=== PATIENT | female | born 1970 | race Caucasian/White ===

== ENCOUNTER 2019-05-13 09:38 | Outpatient (CLI) | payer BC, SELFPAY ==
--- NOTE | ~2019-05-13 | MM_ITS ---
EXAMINATION: MM screening [facility] BI w jason HISTORY: Screening mammogram TECHNIQUE: Craniocaudal and mediolateral oblique 3-D tomosynthesis images were obtained and synthetic 2-D images were generated. CAD analysis was submitted and interpreted. COMPARISON: 04/02/2018, 03/24/2017, 03/22/2016 BREAST PARENCHYMAL COMPOSITION: There are scattered areas of fibroglandular density. FINDINGS: Again seen are a stable asymmetry in the middle third of the outer left breast on the crani ocaudal view and a mass in the middle third of the upper right breast, both considered benign given t he lack of interval change. There is no evidence of suspicious mass, calcification, or architectural distortion to suggest malignancy in either breast. There has been no suspicious interval change. IMPRESSION: 1. No mammographic evidence of malignancy. 2. Recommend routine screening mammography in one year. BI-RADS Category 2: Benign finding(s). Reviewed, dictated and finalized at location A. 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
== END 2019-05-13 09:39 | disposition home or self-care (01) ==
PROVIDERS: PCP Internal Medicine; Referring Provider Obstetrics & Gynecology; Visit Provider Internal Medicine
DX: Z12.31 Encounter for screening mammogram for malignant neoplasm of breast (principal)
CPT/HCPCS: 77063; 77067

== ENCOUNTER 2020-07-04 16:21 | Outpatient (CLI) | payer BC, SELFPAY ==
--- NOTE | ~2020-07-04 | MM_ITS ---
EXAMINATION: MM screening [facility] BI w jason HISTORY: Screening mammogram TECHNIQUE: Craniocaudal and mediolateral oblique 3-D tomosynthesis images were obtained and synthetic 2-D images were generated. CAD analysis was submitted and interpreted. COMPARISON: 05/13/2019, 04/02/2018, 03/24/2017 bilateral digital screening mammogram examinations BREAST PARENCHYMAL COMPOSITION: The breasts are almost entirely fatty. FINDINGS: There is no evidence of suspicious mass, calcification, or architectural distortion to sugg est malignancy in either breast. There has been no suspicious interval change. IMPRESSION: 1. No mammographic evidence of malignancy. 2. Recommend routine screening mammography in one year. BI-RADS Category 1: Negative Reviewed, dictated and finalized at location B.
== END 2020-07-04 16:22 | disposition home or self-care (01) ==
LOC: ANHIMG 16:23
PROVIDERS: PCP Internal Medicine; Visit Provider Internal Medicine
DX: Z12.31 Encounter for screening mammogram for malignant neoplasm of breast (principal)
CPT/HCPCS: 77063; 77067

== ENCOUNTER 2020-08-08 10:19 | Outpatient (CLI) | payer BC, SELFPAY ==
--- NOTE | 2020-08-23 21:48 | WPDHOMESLEEP ---
Sleep Study - Home Unattended Date of Study: 08/08/20 Ordering Provider: Regulo Hernandez APRN Interpreting Provider: Екатерина Davidson MD Home Sleep Study Type: Apnea Link Air Height: 1.57 m Weight: 99.79 kg Body Mass Index: 40.2 Neck Circumference (inches): 14 Reason for Sleep Study Difficulty initiating and maintaining sleep, morning headaches, non restorative sleep Sleep History Patty Marshall is a 50 year old female with difficulty getting to sleep and staying asleep. This has been going on for years. She has morning headaches frequently. On waking, she never feels rested. She has daytime fatigue. Symptoms worsened over the last 10 years with ayleen-menopause and early menopause. She feels tired on waking. She has insomnia twice a month for 3-5 nights at a time. There is a family history of sleep issues with her parents and her older brother diagnosed with sleep apnea. She is using dacz-wbb-ypzcbxe melatonin recently changed to Valerian. She does not awaken from sleep feeling short of breath. She does not awaken at night with heartburn, belching or coughing. She occasionally snores. She rarely snores loudly enough that others complain about it. She constantly has trouble sleeping with a cold. She does not wake up gasping for breath at night. She frequently has breathing problems observed by others. She occasionally sweats excessively at night and occasionally notices her heart pounding or beating irregularly at night. She rarely falls asleep during the day, rarely falls asleep involuntarily and never falls asleep while driving. She does not have loss of muscle tone with strong emotion. She frequently has daytime difficulties due to excessive sleepiness. 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 She does not feel paralyzed on waking or falling asleep. She rarely has vivid dreamlike scenes upon awakening or falling asleep. She does not feel afraid to go to sleep. She rarely has nightmares. She rarely remembers her dreams. She rarely has racing thoughts. She occasionally feels sad or depressed. She rarely feels anxiety or worries about things. She occasionally has muscular tension. She frequently notices parts of her body jerking. She never kicks at night. She does not have crawling or aching feelings in her legs. She does not have any kind of leg pain at night. She rarely has morning jaw pain. She rarely grinds her teeth during sleep. She occasionally is bothered by pain during the day and will occasionally awaken due to pain during the night. She frequently wakes up feeling stiff in the morning. Rarely, she wakes with sore or achy muscles. She frequently wakes up with pain in the neck and spine. She feels depressed and takes medications which help. She has memory problems and concentration difficulties which occur more often after insomnia the prior night. She Has chronic sinus and allergy problems. She is trying to avoid hormone replacement therapy due to her mother's cancer history. Normal bedtime is between 11 and 11:30 p.m. taking 30 minutes to fall asleep typically waking twice at night. When she awakes she will go urinate and change positions. It takes 30 minutes to fall asleep again is sometimes as long as 2-3 hours. She wakes the morning at 6:40 a.m.. On the weekends she also goes to bed between 11 and 11:30 p.m. waking between 8 and 9:00 a.m.. She estimates getting 6-7 hours of sleep normally. She does not generally take naps. She is drowsy in the morning for an hour. Habits: Never smoked. Caffeine 2 glasses of tea in the morning. No alk PMFSH Past Medical History Medical History (Updated 08/23/20 @ 22:02 by Екатерина Davidson MD) Depression Diabetes Hypertension Migraines Rheumatoid arthritis Surgical History Surgical History Hx of cholecystectomy [place] teeth removed Family History Family History (Reviewed 12/03/19 @ 14:41 by Angélica Solorzano
[2020-08-23 22:03] VITALS: BMI 40.2
== END 2020-08-08 10:20 | disposition home or self-care (01) ==
LOC: ANHCSM 10:21
PROVIDERS: PCP Internal Medicine; Visit Provider Nurse Practitioner
DX: G47.33 Obstructive sleep apnea (adult) (pediatric) (principal); G47.10 Hypersomnia, unspecified; F32.9 Major depressive disorder, single episode, unspecified; E11.9 Type 2 diabetes mellitus without complications; I10 Essential (primary) hypertension; G43.909 Migraine, unspecified, not intractable, without status migrainosus; M06.9 Rheumatoid arthritis, unspecified; Z79.899 Other long term (current) drug therapy; E66.9 Obesity, unspecified; Z68.41 Body mass index [BMI] 40.0-44.9, adult
CPT/HCPCS: 95806

== ENCOUNTER 2020-11-01 09:21 | Outpatient (CLI) | payer BC, SELFPAY ==
--- NOTE | 2020-11-20 14:04 | WPDSLEEPSTUD ---
Sleep Study Date of Study: 11/01/20 Ordering Provider: Regulo Hernandez APRN Interpreting Physician: Екатерина Davidson MD Sleep Study Type: CPAP Titration Height: 1.57 m Weight: 102.058 kg Body Mass Index: 41.1 Neck Circumference (inches): 16 [place]: 5 Reason for Sleep Study Home sleep test using ApneaLink August 08, 2020 with at least mild obstructive sleep apnea with an apnea-hypopnea index of 10.1, desaturation to 87% and snoring, has hypertension and depression, takes medications for both. She presents for a CPAP titration in the sleep lab. Sleep History Patty Marshall is a 50 year old female with difficulty getting to sleep and staying asleep. This has been going on for years. She has morning headaches frequently. On waking, she never feels rested. She has daytime fatigue. Symptoms worsened over the last 10 years with ayleen-menopause and early menopause. She feels tired on waking. She has insomnia twice a month for 3-5 nights at a time. There is a family history of sleep issues with her parents and her older brother diagnosed with sleep apnea. She is using bwbd-odt-fhlodac melatonin recently changed to Valerian. She does not awaken from sleep feeling short of breath. She does not awaken at night with heartburn, belching or coughing. She occasionally snores. She rarely snores loudly enough that others complain about it. She constantly has trouble sleeping with a cold. She does not wake up gasping for breath at night. She frequently has breathing problems observed by others. She occasionally sweats excessively at night and occasionally notices her heart pounding or beating irregularly at night. She rarely falls asleep during the day, rarely falls asleep involuntarily and never falls asleep while driving. She does not have loss of muscle tone with strong emotion. She frequently has daytime difficulties due to excessive sleepiness. 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 She does not feel paralyzed on waking or falling asleep. She rarely has vivid dreamlike scenes upon awakening or falling asleep. She does not feel afraid to go to sleep. She rarely has nightmares. She rarely remembers her dreams. She rarely has racing thoughts. She occasionally feels sad or depressed. She rarely feels anxiety or worries about things. She occasionally has muscular tension. She frequently notices parts of her body jerking. She never kicks at night. She does not have crawling or aching feelings in her legs. She does not have any kind of leg pain at night. She rarely has morning jaw pain. She rarely grinds her teeth during sleep. She occasionally is bothered by pain during the day and will occasionally awaken due to pain during the night. She frequently wakes up feeling stiff in the morning. Rarely, she wakes with sore or achy muscles. She frequently wakes up with pain in the neck and spine. She feels depressed and takes medications which help. She has memory problems and concentration difficulties which occur more often after insomnia the prior night. She Has chronic sinus and allergy problems. She is trying to avoid hormone replacement therapy due to her mother's cancer history. Normal bedtime is between 11 and 11:30 p.m. taking 30 minutes to fall asleep typically waking twice at night. When she awakes she will go urinate and change positions. It takes 30 minutes to fall asleep again is sometimes as long as 2-3 hours. She wakes the morning at 6:40 a.m.. On the weekends she also goes to bed between 11 and 11:30 p.m. waking between 8 and 9:00 a.m.. She estimates getting 6-7 hours of sleep normally. She does not generally take naps. She is drowsy in the morning for an hour. Habits: Never smoked. Caffeine 2 glasses of tea in the morning. No alk PMFSH Past Medical History Medical History Depression Diabetes Hypertension Migraines Rheumatoid arthritis Surgical History Surgical History
[2020-11-20 14:52] VITALS: BMI 41.1
--- NOTE | 2020-11-20 15:16 | PM.CNPUL ---
History of Present Illness History of Present Illness Consult date: 11/20/20 Chief complaint: louann PMFSH Past Medical History Medical History Depression Diabetes Hypertension Migraines Rheumatoid arthritis Surgical History Surgical History Hx of cholecystectomy [place] teeth removed Family History Family History Father Diabetes mellitus Hypertension Cerebrovascular accident Mother Diabetes mellitus Hypertension Family history of malignant neoplasm of breast in first degree relative Grandparent Hypertension Social History Social History Smoking status: Never smoker Alcohol intake: never Meds Home Medications and Allergies Home Medications Medication Instructions Recorded Confirmed Type fexofenadine 60 mg tablet 60 mg PO Q12H 05/12/19 06/06/20 History magnesium sulfate 100 mg capsule 100 mg PO DAILY 05/12/19 06/06/20 History multivitamin 1 tablet PO DAILY 05/13/19 06/06/20 History sumatriptan succinate 50 mg tablet 50 mg PO .COMPLEX #14 tablet 07/29/19 06/06/20 Rx amitriptyline 25 mg tablet 25 mg PO ONCE #90 tablet 04/20/20 06/06/20 Rx sitagliptin 50 mg-metformin 1,000 1 tablet PO BID #180 tablet 06/06/20 06/06/20 Rx mg tablet bupropion HCl 300 mg 24 hr tablet, 300 mg PO QAM #90 tablet 07/28/20 Rx extended release lisinopril 10 1 tablet PO DAILY #90 tablet 10/17/20 Rx mg-hydrochlorothiazide 12.5 mg tablet zolpidem 10 mg tablet 10 mg PO ONCE #1 tablet 10/20/20 Rx Allergies Allergy/AdvReac Type Severity Reaction Status Date / Time Penicillins Allergy Unknown Unknown Verified 06/06/20 13:58 Sulfa (Sulfonamide Allergy Unknown Unknown Verified 06/06/20 13:58 Antibiotics)
== END 2020-11-02 07:12 | disposition home or self-care (01) ==
LOC: ANHCSM 09:22
PROVIDERS: PCP Internal Medicine; Visit Provider Nurse Practitioner
DX: G47.33 Obstructive sleep apnea (adult) (pediatric) (principal)
CPT/HCPCS: 95811

== ENCOUNTER 2021-02-12 15:04 | Emergency (ER) | payer BC, SELFPAY ==
--- NOTE | ~2021-02-12 | XR_ITS ---
EXAMINATION: XR chest 2V EXAM DATE: 02/12/2021 16:27 INDICATION: Left-sided chest tightness radiating into left shoulder. TECHNIQUE: Frontal and lateral projections of the chest obtained and reviewed. Comparison is made to prior examination from 2009. FINDINGS: The lungs are clear. There are no pleural effusions. The cardiomediastinal silhouette is within normal limits. There is no pneumothorax suspected. The bones and soft tissues are unremarkab le. There are cholecystectomy clips. IMPRESSION: Unremarkable chest x-ray exam. Reviewed, dictated and finalized at location A.
--- NOTE | 2021-02-12 15:11 | ECG_ITS ---
Measurements Intervals [place] Rate: 80 P: 49 TN: 148 QRS: 82 QRSD: 83 T: 53 QT: 359 QTc: 415 Interpretive Statements SINUS RHYTHM WITH SINUS ARRHYTHMIA MINIMAL Q WAVES- INFERIOR LEADS BASELINE ARTIFACT- I, II, AVR BORDERLINE ECG Electronically Signed On 02-12-2021 15:19:33 CDT by Armando Law D.O.
[2021-02-12 15:12] VITALS: BP 148/77; PULSE 89; RESP 18; TEMP 36.3; O2SAT 100
--- NOTE | 2021-02-12 15:20 | PC.NURSE ---
Attempted to obtain blood work for patient x2 with 2 separate RN's without success at this time.
--- NOTE | 2021-02-12 16:45 | ED.CHESTPAIN ---
HPI - Chest Pain General Chief Complaint: Chest Pain Stated Complaint: Chest Pain Time Seen by Provider: 02/12/21 16:32 Source: patient and RN notes reviewed Mode of arrival: ambulatory Limitations: no limitations History of Present Illness HPI narrative: This is a 50 year old female with history of hypertension and diabetes mellitus who presents for evaluation of left anterior chest pain. Patient has been dealing with what she thought was seasonal allergies for 2 weeks . Her symptoms include sneezing, runny nose, nasal congestion and mild cough. She went to [facility] for evaluation today because she developed mild left anterior chest pain on Friday. She describes her left anterior chest pain as intermittent , nonradiating tightening. She also reports constant dull ache to left posterior shoulder for 1 week that is not associated with her chest pain. Her symptoms are not worsened with exertion or any other factors. She denies fever, chills, nausea or vomiting. She also reports intermittent epigastric pain. Related Data Home Medications Medication Instructions Recorded Confirmed fexofenadine 60 mg tablet 60 mg PO Q12H 05/12/19 12/14/20 magnesium sulfate 100 mg capsule 100 mg PO DAILY 05/12/19 12/14/20 multivitamin 1 tablet PO DAILY 05/13/19 12/14/20 phenylephrine HCl 10 mg tablet 10 mg PO Q4-6H PRN 12/14/20 12/14/20 turmeric root extract 1,053 mg 1,076 mg PO DAILY 12/14/20 12/14/20 tablet Allergies Allergy/AdvReac Type Severity Reaction Status Date / Time Penicillins Allergy Unknown Unknown Verified 01/08/21 14:24 Sulfa (Sulfonamide Allergy Unknown Unknown Verified 01/08/21 14:24 Antibiotics) Review of Systems Review of Systems: All systems reviewed & are unremarkable except as noted in HPI and below Constitutional: Constitutional: Denies chills and Denies fever(s) ENT: Reports nasal congestion and Reports sinus pressure Cardiovascular: Cardiovascular: Reports chest pain Respiratory: Respiratory: Reports cough and Reports dyspnea Gastrointestinal: Gastrointestinal: Reports abdominal pain, Denies diarrhea, Denies nausea and Denies vomiting PMFSH Past Medical History Medical History Depression Diabetes Hypertension Migraines Rheumatoid arthritis Surgical History Surgical History Hx of cholecystectomy [place] teeth removed Family History Family History Father Diabetes mellitus Hypertension Cerebrovascular accident Mother Diabetes mellitus Hypertension Family history of malignant neoplasm of breast in first degree relative Grandparent Hypertension Social History Social History (Updated 01/08/21 @ 14:24 by Luna Rodgers [facility]) Smoking status: Never smoker Second hand tobacco smoke exposure: No Alcohol intake: never Substance use: never Substance use type: does not use Exam Const: General: no acute distress and alert Eyes: Pupils: Equal, round and reactive pupils present EOM: EOMs intact bilaterally Chest: Chest palpation & inspection: normal inspection of the chest Resp: Effort & Inspection: normal respiratory effort and no retractions Auscultation: clear to auscultation bilaterally Cardio: Rate: regular rate Rhythm: regular rhythm Heart sounds: no murmurs GI: GI Palp: Yes Soft to palpation, Yes Tenderness to palpation present (GI) (epigastric), No Guarding due to palpation present (GI) and No Rigid due to palpation Auscultation: normal bowel sounds Skin: General skin exam: normal color Rashes: no rashes Neuro: General: patient oriented x3, moves all extremities and CN's II-XI intact bilaterally Extrem: General: normal to inspection Psych: Mental Status: mental status grossly normal Affect: normal affect Course Reevaluation(s) Reevaluation #1: PAtient presented with
[2021-02-12 17:01] LABS: Basophils Absolute Auto 0.1 K/mm3 (0.0-0.1); Basophils Percent Auto 0.5 % (0.2-1.2); Eosinophils Absolute Auto 0.3 K/mm3 (0-0.3); Eosinophils Percent Auto 3.1 % (0-4.4); Hemoglobin 13.2 g/dL (12.0-15.0); Immature Granulocyte Absolute 0.07 K/mm3 (0.00-0.031); Immature Granulocyte Percent A 0.8 % (0-0.5); Lymphocytes Absolute Auto 2.85 K/mm3 (0.9-3.2); Lymphocytes Percent Auto 30.7 % (18.3-44.2); Mean Corpuscular Hemoglobin 30.2 pg (26-34); Mean Corpuscular Volume 91.5 fl (80-100); Mean Platelet Volume 8.8 fl (7.4-10.4); Monocytes Absolute Auto 0.7 K/mm3 (0.1-0.6); Monocytes Percent Auto 7.9 % (2.6-8.5); Neutrophils Absolute Auto 5.3 K/mm3 (1.3-6.7); Platelet Count Result 348 k/mm3 (150-375); Red Blood Count 4.37 M/mm3 (4.2-5.4); Red Cell Distribution Width 13.8 % (11.5-14.5); White Blood Count 9.3 K/mm3 (4.5-10.0)
[2021-02-12 17:16] LABS: INR 0.9; Prothrombin Time 11.7 Seconds (11.1-14.7)
[2021-02-12 17:17] LABS: Partial Thromboplastin Time 27.8 SECONDS (22.3-36.8)
[2021-02-12 17:20] LABS: D Dimer 0.31 ug/mL (<0.48)
[2021-02-12 17:34] LABS: Troponin I < 0.012 ng/mL (0.000-0.034)
[2021-02-12 17:36] LABS: Alanine Aminotransferase 37 U/L (4-35); Albumin Level 4.7 g/dL (3.5-5.1); Alkaline Phosphatase 88 U/L (38-126); Anion Gap 11 mmol/L (8-16); Aspartate Amino Transferase 39 U/L (14-36); Bilirubin,Total 0.4 mg/dL (0.2-1.3); Blood Urea Nitrogen 15 mg/dL (7-17); Calcium 9.7 mg/dL (8.4-10.2); Carbon Dioxide 23 mmol/L (22-30); Chloride 107 mmol/L (98-107); Estimated CRCL calculation 82 ml/min; Estimated Glomerular Filt Rate > 60; Glucose 89 mg/dL (65-110); Lipase 28 U/L (23-300); Sodium 141 mmol/L (137-145)
[2021-02-12 18:23] VITALS: BP 122/74; PULSE 86; RESP 13; O2SAT 100
[2021-02-12] MEDS: KETOROLAC 30 MG/ML VIAL (*BKC) IV PUSH (18:55)
[2021-02-12 19:05] LABS: Troponin I < 0.012 ng/mL (0.000-0.034)
[2021-02-12 19:38] LABS: Add Urine Microscopic? YES; Appearance Urine Cloudy (Clear); Bacteria Urine Trace /hpf; Bilirubin Urine Negative (Negative); Blood Urine Negative (Negative); Color Urine Yellow (Yellow); Glucose Urine UA Negative (Negative); Ketones Urine Negative (Negative); Leukocyte Esterase Ur 2+ LEU/UL (Negative); Mucus Urine Rare /lpf; Nitrate Urine Negative (Negative); Protein Urine Negative (Negative); Specific Grav Ur 1.013 (1.001-1.035); Squamous Epithelial Cell Urine Few /hpf (Few); Urobilinogen Urine Negative mg/dL (<2.0)
[2021-02-12 20:01] VITALS: BP 123/65; PULSE 75; RESP 13; O2SAT 99
[2021-02-12 21:27] VITALS: BP 114/73; PULSE 82; RESP 16; O2SAT 99
== END 2021-02-12 20:36 | disposition home or self-care (01) ==
PROVIDERS: Emergency Medicine; Emergency Provider General Practice; PCP Internal Medicine
DX: J06.9 Acute upper respiratory infection, unspecified (principal); R07.9 Chest pain, unspecified; I10 Essential (primary) hypertension; E11.9 Type 2 diabetes mellitus without complications; M06.9 Rheumatoid arthritis, unspecified; F32.A Depression, unspecified; Z79.84 Long term (current) use of oral hypoglycemic drugs; R94.31 Abnormal electrocardiogram [ECG] [EKG]
CPT/HCPCS: 36415; 71046; 80048; 80076; 81001; 81025; 83690; 84484; 85025; 85380; 85610; 85730; 87086; 87088; 93005; 96374; 99284; J1885

== ENCOUNTER 2021-08-16 16:47 | Outpatient (CLI) | payer BC, SELFPAY ==
--- NOTE | ~2021-08-16 | MM_ITS ---
EXAMINATION: MM screening [facility] BI w jason HISTORY: Screening mammogram TECHNIQUE: Craniocaudal and mediolateral oblique 3-D tomosynthesis images were obtained and synthetic 2-D images were generated. CAD analysis was submitted and interpreted. COMPARISON: 07/04/2020, 05/13/2019, 04/02/2018 bilateral screening mammogram examinations BREAST PARENCHYMAL COMPOSITION: The breasts are almost entirely fatty. FINDINGS: There is no evidence of suspicious mass, calcification, or architectural distortion to sugg est malignancy in either breast. There has been no suspicious interval change; no significant new or developing density.. IMPRESSION: 1. No mammographic evidence of malignancy. 2. Recommend routine screening mammography in one year. BI-RADS Category 2: Benign finding(s). Reviewed, dictated and finalized at location A.
== END 2021-08-16 16:48 | disposition home or self-care (01) ==
PROVIDERS: PCP Internal Medicine; Visit Provider Internal Medicine
DX: Z12.31 Encounter for screening mammogram for malignant neoplasm of breast (principal)
CPT/HCPCS: 77063; 77067

== ENCOUNTER → 2021-08-23 08:14 | Outpatient (CLI) | payer BC, SELFPAY ==
--- NOTE | ~2021-08-23 | US_ITS ---
EXAMINATION: US pelvic complete w TV DATE: 08/23/2021 08:44 INDICATION: Postmenopausal bleeding TECHNIQUE: Multiple transabdominal and endovaginal sonographic images of the pelvis were obtained. COMPARISON: 05/11/2018 FINDINGS: The uterus measures 6.5 x 3.3 x 4.6 cm. There is a 3.3 x 3.1 cm hypoechoic lesion of the ut erine fundus with has the appearance of an intramural fibroid. A 2.5 x 2.0 cm isoechoic lesion of the posterior uterine body also likely represents an intramural fibroid. The endometrial complex measure s 6 mm. An IUD appears to be in expected position. The right ovary is not visualized however no right adnexal abnormality is seen. The left ovary measures 2.0 x 1.5 x 1.7 cm. There is normal vascular fl ow in the left ovary. There is no free fluid in the pelvis. IMPRESSION: 1. No sonographic correlate for the patient's symptoms. Reviewed, dictated and finalized at location A.
== END ==
PROVIDERS: PCP Internal Medicine; Visit Provider Obstetrics & Gynecology
DX: N95.0 Postmenopausal bleeding (principal)
CPT/HCPCS: 76830; 76856

== ENCOUNTER 2022-04-18 10:03 | Outpatient (CLI) | payer BC, SELFPAY ==
--- NOTE | 2022-04-18 10:13 | ECG_ITS ---
Measurements Intervals [place] Rate: 72 P: 48 TN: 150 QRS: 76 QRSD: 90 T: 43 QT: 366 QTc: 401 Interpretive Statements SINUS RHYTHM WITH SINUS ARRHYTHMIA MINIMAL Q WAVES- INFERIOR LEADS BORDERLINE ECG COMPARED TO ECG 02/12/2021 15:08:34 NO SIGNIFICANT CHANGES Electronically Signed On 04-18-2022 13:05:20 HISTOLOGY SUPERVISOR by Armando Law D.O.
== END 2022-04-18 10:04 | disposition home or self-care (01) ==
LOC: ANHCARD 10:04
PROVIDERS: PCP Internal Medicine; Visit Provider Obstetrics & Gynecology
DX: Z01.810 Encounter for preprocedural cardiovascular examination (principal)
CPT/HCPCS: 93005

== ENCOUNTER 2022-05-01 00:07 | Day surgery (SDC) | payer BC, SELFPAY ==
[2022-04-19 11:38] VITALS: BMI 41.3
--- NOTE | 2022-04-19 11:43 | PC.NURSE ---
Report to the Outpatient Waiting Room, entrance under the green pavilion located off [facility], at time 0600 on date 05/01/22. Planned Procedure Time: 0730. Time changes happen often and if your time is changed the preop area will call you the afternoon before. - You and your visitor will be asked to self-screen and do not enter if you have any COVID symptoms. - Only one visitor is requested with a max of two and NO children visitors are allowed at this time. - The patient visitor may be requested to leave or wait in car when not with patient due to distancing restrictions. - A mask is REQUIRED within the hospital. Patients may have clear liquids (water, carbonated beverages, clear teas, apple juice) until 3 hours prior to surgery with a maximum of 20 ounces. - No food from midnight until time of surgery Take the following medications with a SIP of water the morning of surgery: BUPROPION, NALTREXONE Medications to discontinue per physician: VITAMINS/SUPPLEMENTS Date to take last dose: 04/27/22 Please no make-up, nail trinidadian, hairspray, perfume, deodorant, or body powder the day of surgery. No jewelry (including any body piercings) or valuables the day of surgery, leave them at home. Please take a shower or bath the night before, or the morning of, surgery with an antibacterial soap. Wear comfortable, loose fitting clothing. - Jewelry must be removed prior to entering the operating room. Rings and piercings that are not removed may be cut off. - The hospital will not accept responsibility for valuables. - Please leave all valuables, including medications, at home the day of surgery. If you are going home after surgery, a licensed tanker driver must drive you home. - NO public transportation without another adult if you receive anesthesia. - We recommend that an adult stay with you for 24 hours following discharge. - We also recommend that you do not drive, make important decision, drink alcoholic beverages, or take any drugs that were not prescribed by your health care provider for at least 24 hours after your discharge time. Follow any additional instructions given to you from your surgeon. If you or anyone in your household have experienced Covid symptoms in the past week, please notify your surgeon or the nurse liaison at the phone number below for possible testing. Telephone instructions given to PT - JARAD JOHNSON and asked if any additional questions and then verbalized understanding. Patient advised to call surgeon office or pre surgery nurse liaison [phone] if any additional questions.
--- NOTE | 2022-04-30 13:07 | WPDANESEPPF ---
Anes - Initial Pre Proc Eval Procedure: Operation Date: 05/01/22 07:30 Proposed Procedures p Robotic Assisted Total Hysterectomy with Bilateral Salpingo-oophorectomy - Chico Temple MD Date/Time: 04/30/22 13:07 Surgeon: Chico Temple MD Pre Op Diagnosis: Fibroid Uterus Patient Data Age: 51 Gender: F Height: 1.57 m Weight: 102.5 kg Allergies Allergy/AdvReac Type Severity Reaction Status Date / Time Penicillins Allergy Unknown Redness of Verified 05/01/22 06:37 Skin Sulfa (Sulfonamide Allergy Unknown Hives Verified 05/01/22 06:37 Antibiotics) Home Medications Medication Instructions Recorded Confirmed Type fexofenadine 60 mg tablet (Tanya 60 mg PO Q12H 05/12/19 04/23/22 History Allergy) magnesium sulfate 100 mg capsule 100 mg PO DAILY 05/12/19 04/23/22 History phenylephrine HCl 10 mg tablet 10 mg PO Q4-6H PRN Sinus Symptoms 12/14/20 04/23/22 History (Sudafed PE) fluticasone propionate 50 2 spray intranasal DAILY #16 grams 02/05/21 04/23/22 Rx mcg/actuation nasal spray,suspension (Flonase Allergy Relief) levonorgestrel 20 mcg/24 hours (8 1 device intrauterine ONCE 09/27/21 04/23/22 History yrs) 52 mg intrauterine device (Mirena) zolpidem 10 mg tablet (Ambien) 10 mg PO QHS PRN insomnia #30 tabs 10/23/21 04/23/22 Rx naltrexone 50 mg tablet 25 mg PO DAILY #15 tabs 04/02/22 04/23/22 Rx bupropion HCl 300 mg 24 hr tablet, See Rx Instructions .Route 04/10/22 04/23/22 Rx extended release .COMPLEX #90 tabs lisinopril 10 See Rx Instructions .Route 04/10/22 04/23/22 Rx mg-hydrochlorothiazide 12.5 mg .COMPLEX #90 tabs tablet sitagliptin phosphate 50 See Rx Instructions .Route 04/10/22 04/23/22 Rx mg-metformin 1,000 mg tablet .COMPLEX #180 tabs (Janumet) docusate sodium 100 mg capsule 100 mg PO BID 04/19/22 04/23/22 History (Dulcolax Stool Softener (docusate)) guaifenesin 600 mg tablet, 600 mg PO Q12H PRN Sinus Symptoms 04/19/22 04/23/22 History extended release 12 hr (Mucinex) nutritional supplement-fiber oral 1 ea PO DAILY 04/19/22 04/23/22 History liquid soy isoflavone-black cohosh 1 cap PO DAILY 04/19/22 04/23/22 History root-magnolia bark 155 mg capsule (Estroven) sumatriptan succinate 50 mg tablet 50 mg PO .COMPLEX #14 tabs 04/23/22 04/23/22 Rx (Imitrex) Patient hx anesthesia problems: post op nausea/vomiting (scopolamine ordered) Family hx anesthesia problems: none Results Review: All pre-operative results and documents have been reviewed as part of the pre-operative evaluation. [facility] Past Medical History Medical History Depression Diabetes Hypertension Migraines Rheumatoid arthritis Surgical History Surgical History Hx of cholecystectomy [place] teeth removed Family History Family History Father Diabetes mellitus Hypertension Cerebrovascular accident Mother Diabetes mellitus Hypertension Family history of malignant neoplasm of breast in first degree relative Grandparent Hypertension Social History Social History Smoking status: Never smoker Second hand tobacco smoke exposure: No Alcohol intake: never Substance use: never Substance use type: does not use Lack of Transportation: No Lack of Food: Never True Current Housing: I Have Housing Concerned About Future Housing: No Difficulty Paying Gas/Electric Bills: No Difficulty Paying for Meds: No Currently Unemployed: No Education: Master's Degree or Higher Living arrangements: with family Spiritual care concerns: No Anes - Eval Final PreProcedure Day of Procedure 04/30/22 13:07 Patient weight: morbidly obese Heart: regular rate and rhythm Lungs: clear to auscultation Airway: Mallamp
--- NOTE | 2022-04-30 16:35 | PM.IMHP ---
H&P: HPI History of Present Illness Date/Time: 04/30/22 16:35 Chief Complaint: Abnormal uterine bleeding Narrative: Patient has a history of irregular bleeding starting in 2021. Her workup included an ultrasound which did show a fibroid and an endoemtrial lesion. Endometrial biopsy in the office did show and endometrial polyp. She has been informed of her options for treatment of the irregular bleeding, fibroids and endometrial polyp. She wants definitive treatment with hysterectomy. She does not want any possibility of the abnormal bleeding returning. She has an IUD which will be removed at the time of surgery. Review of Systems Review of Systems: All systems reviewed & are unremarkable except as noted in HPI and below Constitutional: Constitutional: Reports no additional constitutional complaints Eyes: Eyes: Reports no additional eye complaints Cardiovascular: Cardiovascular: Reports no additional cardiovascular complaints Respiratory: Respiratory: Reports no additional respiratory complaints Gastrointestinal: Gastrointestinal: Reports no additional gastrointestinal complaints Genitourinary: Genitourinary: Reports no additional female genitourinary complaints and Reports as per HPI Integumentary/Breasts: Skin/Breast: Reports system reviewed and no additional complaints, except as docu Neurologic: Reports system reviewed and no additional complaints, except as documented Psychiatric: Psychiatric: Reports no additional psychiatric complaints Hematologic/Lymphatic: Hematologic/Lymphatic: Reports no additional hematologic/lymphatic complaints [facility] Past Medical History Medical History Depression Diabetes Hypertension Migraines Rheumatoid arthritis Surgical History Surgical History Hx of cholecystectomy [place] teeth removed Family History Family History Father Diabetes mellitus Hypertension Cerebrovascular accident Mother Diabetes mellitus Hypertension Family history of malignant neoplasm of breast in first degree relative Grandparent Hypertension Social History Social History Smoking status: Never smoker Second hand tobacco smoke exposure: No Alcohol intake: never Substance use: never Substance use type: does not use Lack of Transportation: No Lack of Food: Never True Current Housing: I Have Housing Concerned About Future Housing: No Difficulty Paying Gas/Electric Bills: No Difficulty Paying for Meds: No Currently Unemployed: No Education: Master's Degree or Higher Living arrangements: with family Spiritual care concerns: No Meds Home Medications and Allergies Home Medications Medication Instructions Recorded Confirmed Type fexofenadine 60 mg tablet (Tanya 60 mg PO Q12H 05/12/19 04/23/22 History Allergy) magnesium sulfate 100 mg capsule 100 mg PO DAILY 05/12/19 04/23/22 History phenylephrine HCl 10 mg tablet 10 mg PO Q4-6H PRN Sinus Symptoms 12/14/20 04/23/22 History (Sudafed PE) fluticasone propionate 50 2 spray intranasal DAILY #16 grams 02/05/21 04/23/22 Rx mcg/actuation nasal spray,suspension (Flonase Allergy Relief) levonorgestrel 20 mcg/24 hours (8 1 device intrauterine ONCE 09/27/21 04/23/22 History yrs) 52 mg intrauterine device (Mirena) zolpidem 10 mg tablet (Ambien) 10 mg PO QHS PRN insomnia #30 tabs 10/23/21 04/23/22 Rx naltrexone 50 mg tablet 25 mg PO DAILY #15 tabs 04/02/22 04/23/22 Rx bupropion HCl 300 mg 24 hr tablet, See Rx Instructions .Route 04/10/22 04/23/22 Rx extended release .COMPLEX #90 tabs lisinopril 10 See Rx Instructions .Route 04/10/22 04/23/22 Rx mg-hydrochlorothiazide 12.5 mg .COMPLEX #90 tabs tablet sitagliptin phosphate 50 See Rx Instructions .Route 04/10/22
[2022-05-01] VITALS (11 sets, daily range): BP systolic 104–140; BP diastolic 57–85; PULSE 72–92; RESP 14–18; TEMP 36.5–37.1; O2SAT 91–100; BMI 40.8
[2022-05-01] MEDS: LACTATED RINGERS 1,000 ML 30 ML IV CONT ×2 (06:55→10:16)
[2022-05-01 07:11] LABS: Glucose Point of Care 129 mg/dl (65-105)
--- NOTE | 2022-05-01 07:21 | WPDHPUPDATE1 ---
History and Physical Update Update Date/Time: 05/01/22 07:21 History and Physical has been reviewed, including an updated exam of the patient. There are NO changes in the patient's condition. Risks, benefits, and alternatives have been discussed and questions answered. Patient agrees to proceed with procedure.
[2022-05-01] MEDS: ACETAMINOPHEN 500 MG TABLET 1000 MG PO (07:22)
[2022-05-01] MEDS: KETOROLAC 15 MG/ML VIAL (*BKC) IV PUSH (07:22)
[2022-05-01] MEDS: SCOPOLAMINE 1.5 MG PATCH TRANSDERM (07:25)
[2022-05-01] MEDS: ceFAZolin 2 GM/D5W 50 ML 2 GM/50 ML BAG IVPB (07:32)
--- NOTE | 2022-05-01 09:54 | W.PM.PROC2 ---
Procedure Note - Detailed Date of Procedure 05/01/22 Pre-op Diagnosis Fibroid Uterus, endometrial polyp, abnormal uterine bleeding Post-op Diagnosis Same Procedure Performed Robotic assisted laparoscopic hysterectomy with bilateral salpingo-oophorectomy Surgeon Chico Temple MD Alignment Mechanic Jin Acevedo Anesthesia General Indications History of abnormal bleeding and fibroids and endometrial polyp on biopsy. Findings Large anterior fibroid, subserosal 3.5 cm, left ovary with 1.5 to 2cm smooth solid growth. Description of Procedure After informed consent was obtained she was taken to the operating room and general endotracheal anesthesia was administered. She was placed in low lithotomy position. An exam under anesthesia was performed. She was and prepped and draped in sterile fashion. Rivera catheter placed in bladder. Attention was turned to the vagina speculum was inserted. Single-tooth tenaculum placed on anterior lip of the cervix the uterus sounded to 7 cm. The cervix was dilated to a 8 Sloan dilator. A size 6 uterine manipulator was inserted and secured. A size 3.0 colp cup was secured in the vagina. Then attention was turned to the abdomen with new sterile gloves. .25% marcaine injected subcutaneously 2cm supraumbilic area. A horizontal incision, 2 cm was made above the umbilicus. The subcutaneous tissue was dissected with S retractors. Anterior and posterior fascia grasped with Alicia clamp and incised. Peritoneum entered. No adhesions palpated. The fascia sutures were secured with 0 vicryl. The robotic hysson port and camera inserted into abdomen and secured to fascial sutures. A Pneumoperitoneum of 15 mm per mercury was obtained. No abdominal or pelvic adhesions noted. Marcaine injected 6cm lateral to supraumbilical incision. A small incision was made approximately 6 cm lateral to the port on the left side of the port. A size 8mm robotic port was inserted under laparoscopic visualization into the abdomen on the right side and superior to this an incision was made after Marcaine injected subcutaneously and a assisted port was inserted under laparoscopic visualization. Attention was turned to the right round ligament which was ligated with the vessel sealer. The anterior leaf of the broad ligament was dissected anteriorly toward the vesicouterine peritoneum. The right side of the bladder was dissected from the lower uterine segment and upper cervix. The right infundibulum pelvic ligament was ligated with the vessel sealer. The a posterior leaf of the broad ligament was further dissected. The ascending uterine vessels on the right were cauterized with vessel sealer. The uterine vessels on the right were ligated. Attention was turned to the left round ligament which was ligated and the anterior leaf of the broad ligament was dissected anteriorly. The rest of the vesicouterine peritoneum was dissected off of the uterus. The left infundibulo pelvic ligament was cauterized with vessel sealer after adhesions of the distal fallopian tube and pericolic fat were lysed from the left sidewall. Once the bladder was dissected below the colp cup then the posterior leaf of the broad ligament was further dissected. The ascending uterine vessels were cauterized with the vessel sealer. The uterine arteries were ligated. The cardinal ligaments were ligated on both sides. An anterior colpotomy incision was made and this was carried around until the cervix was removed from the vagina. The uterus and cervix were removed through the vagina. The vaginal cuff was closed in a running fashion with 0 V lock suture. Hemostasis was noted. The pelvis was irrigated. Hemostasis noted. Hemoderm was applied in the pelvis. The patient was taken out of Trendelenburg position. The pneumoperitoneum was released and the ports were removed. The fascial stitch at the supraumbilical incision was approximated with O vicryl. The skin incisions were closed with 4 O Vicryl and skin g
[2022-05-01 10:52] LABS: Glucose Point of Care 171 mg/dl (65-105)
--- NOTE | 2022-05-01 11:41 | PC.NURSE ---
Patient transferred to post room #278 via (stretcher ). Support person present. Oriented to unit, room, information board, rooming in, admission packet and security measures. Patient verbalizes understanding.
[2022-05-01] MEDS: DEXTROSE 5%/0.45% SOD CHL 1,000 ML 125 ML IV CONT (11:54)
[2022-05-01] MEDS: ESTRADIOL 7 DAY 0.05 MG PATCH TRANSDERM (11:55)
[2022-05-01] MEDS: LORATADINE 10 MG TABLET PO (11:56)
[2022-05-01] MEDS: KETOROLAC 30 MG/ML VIAL (*BKC) IV PUSH (15:02)
[2022-05-01] MEDS: DOCUSATE SODIUM 100 MG CAPSULE PO (16:13)
[2022-05-01] MEDS: metFORMIN HCL 500 MG TABLET 1000 MG PO (16:13)
[2022-05-01] MEDS: HYDROcodone/acetaminophen (*CRX) 5-325 MG TABLET 1 TAB PO (16:16)
[2022-05-01] MEDS: PHENOL/SOD PHENO SPRAY CHERRY (*BKC) 1 SPRAY MUCOUS MEM (17:24)
[2022-05-01] MEDS: ACETAMINOPHEN 500 MG TABLET PO (20:22)
[2022-05-02 05:38] VITALS: BP 122/67; PULSE 98; RESP 14; TEMP 36.9; O2SAT 96
[2022-05-02 05:50] LABS: Glucose Point of Care 123 mg/dl (65-105)
[2022-05-02] MEDS: ACETAMINOPHEN 500 MG TABLET PO (06:08)
[2022-05-02 07:35] VITALS: BP 123/63; PULSE 91; RESP 18; TEMP 36.6; O2SAT 97
--- NOTE | 2022-05-02 07:37 | PM.GYNPNOP ---
SLURRY MIXER - A/P Assessment and plan (1) History of hysterectomy: Code(s): Z90.710 - Acquired absence of both cervix and uterus Status: Acute Assessment and Plan: POD1. She is doing well. Will discharge when flatus. Encourage ambulation. Discharge precautions discussed. Postoperative Procedures: Procedures Operation Date: 05/01/22 07:30 Actual Procedure Side Surgeon p Robotic Assisted Total Hysterectomy with Bilateral Salpingo-oophorectomy,Removal of IUD Bilateral Chico Temple MD Time Spent With Patient Time: Total time spent is greater than 50% in coordination of care (as documented) at patient's floor/unit and/or counseling patient: Time with patient: less than 15 minutes SLURRY MIXER- PN:Subj Post-Op Subjective Date/time seen: 05/02/22 07:37 Interval history: She has set up in chair and walked without problems. No flatus. She has had a good pain control with the oral pain meds. Has urinated without problems. Subjective: pain is well controlled and patient is tolerating oral intake Review of Systems Review of Systems: All systems reviewed & are unremarkable except as noted in HPI and below Cardiovascular: Cardiovascular: Reports no additional cardiovascular complaints Respiratory: Respiratory: Reports no additional respiratory complaints Gastrointestinal: Gastrointestinal: Reports belching, Denies nausea and Denies vomiting Genitourinary: Genitourinary: Reports no additional female genitourinary complaints Musculoskeletal: Musculoskeletal: Reports no additional musculoskeletal complaints Exam Const: General: comfortable and no acute distress Orientation/consciousness: oriented to person, oriented to place and oriented to time Resp: Auscultation: clear to auscultation bilaterally Cardio: Rate: regular rate Rhythm: regular rhythm GI: GI Palp: Yes Soft to palpation and No Tenderness to palpation present (GI) Auscultation: normal bowel sounds Neuro: General: oriented to person, oriented to place and oriented to time Extrem: General: no calf tenderness Psych: Mental Status: mental status grossly normal SLURRY MIXER - PN: Obj Data Vital Signs Vital Signs: Vital Signs - 24 hr 05/01/22 10:16 05/01/22 10:30 05/01/22 10:45 Temperature Pulse Rate 72 72 78 Respiratory Rate 15 14 15 Blood Pressure 104/58 L 108/57 L 118/68 Pulse Oximetry 91 95 99 Oxygen Delivery Simple Face Mask Simple Face Mask Simple Face Mask Oxygen Flow Rate 10 10 10 05/01/22 11:00 05/01/22 11:07 05/01/22 11:15 Temperature Pulse Rate 92 88 Respiratory Rate 16 15 Blood Pressure 130/74 137/82 Pulse Oximetry 100 96 Oxygen Delivery Simple Face Mask Room Air Nasal Cannula Oxygen Flow Rate 6 2 05/01/22 11:30 05/01/22 11:50 05/01/22 11:50 Temperature 97.7 F Pulse Rate 87 81 Respiratory Rate 18 16 Blood Pressure 135/84 140/85 Pulse Oximetry 97 100 100 Oxygen Delivery Nasal Cannula Nasal Cannula Oxygen Flow Rate 2 2 05/01/22 16:25 05/01/22 20:25 05/01/22 23:55 Temperature 98.7 F 98.6 F 98.4 F Pulse Rate 87 86 90 Respiratory Rate 16 18 16 Blood Pressure 127/71 130/74 124/70 Pulse Oximetry 98 96 96 Oxygen Delivery Oxygen Flow Rate 05/02/22 05:38 Temperature 98.5 F Pulse Rate 98 Respiratory Rate 14 Blood Pressure 122/67 Pulse Oximetry 96 Oxygen Delivery Oxygen Flow Rate Intake/Output Intake/Output: Intake & Output 04/29/22 04/30/22 05/01/22 05/02/22 23:59 23:59 23:59 23:59 Intake Total 1850 1300 Output Total 1550 850 Balance 300 450 Meds/Results Medications: Active Medications Generic Name Dose Route Start Last Admin Trade Name Freq PRN Reason Stop Dose Admin Acetaminophen 500 mg 05/01/22 16:36 05/02/22 06:08 Acetaminophen 500 Mg Tablet PO 500 mg Q4H PRN Administration headache Hydrocodone Bitart/Acetaminophen 1 tab 05/01/22 09:58 05/01/22 16:16 Hydrocodone/Acetaminophen (*Crx) 5-325 Mg Tablet PO 1 tab Q3H
[2022-05-02] MEDS: BISACODYL 10 MG SUPPOSITORY RECTAL (08:46)
[2022-05-02] MEDS: metFORMIN HCL 500 MG TABLET 1000 MG PO (08:47)
[2022-05-02] MEDS: buPROPion HCL XL (24 HR) 150 MG TABCR PO (08:48)
[2022-05-02] MEDS: DOCUSATE SODIUM 100 MG CAPSULE PO (08:48)
[2022-05-02] MEDS: FLUTICASONE PROPIONATE 0.05% NA SPR 16 GM BTL (*BKC) 2 SPRAY NASAL (08:49)
[2022-05-02] MEDS: LORATADINE 10 MG TABLET PO (08:49)
[2022-05-02] MEDS: lisinopriL 10 MG TABLET PO (08:49)
[2022-05-02] MEDS: hydroCHLOROthiazide 12.5 MG CAPSULE PO (08:49)
== END 2022-05-02 13:26 | disposition home or self-care (01) ==
LOC: ANHSURGERY 07:56 → ANHOB2 20:22
PROVIDERS: PCP Internal Medicine; Visit Provider Obstetrics & Gynecology
PROC: (CPT 58571; principal; 2022-05-01 07:30)
DX: N93.9 Abnormal uterine and vaginal bleeding, unspecified (principal); D25.2 Subserosal leiomyoma of uterus; N83.202 Unspecified ovarian cyst, left side; I10 Essential (primary) hypertension; E11.9 Type 2 diabetes mellitus without complications; M06.9 Rheumatoid arthritis, unspecified; F32.A Depression, unspecified; Z79.84 Long term (current) use of oral hypoglycemic drugs
CPT/HCPCS: 58571; S2900; 36415; 82948; 86850; 86900; 86901; 88307; 99199; A9270; J0690; J1100; J1170; J1885; J2250; J2405; J2704; J2710; J3010; J7030; J7120

== ENCOUNTER 2022-09-13 07:43 | Outpatient (CLI) | payer BC, SELFPAY ==
--- NOTE | ~2022-09-13 | MM_ITS ---
EXAMINATION: MM screening wang BI w jason HISTORY: Screening mammogram TECHNIQUE: Craniocaudal and mediolateral oblique 3-D tomosynthesis images were obtained and synthetic 2-D images were generated. CAD analysis was submitted and interpreted. COMPARISON: 08/16/2021, 07/04/2020, 05/13/2019 bilateral screening mammogram examinations BREAST PARENCHYMAL COMPOSITION: The breasts are almost entirely fatty. FINDINGS: There is no evidence of suspicious mass, calcification, or architectural distortion to sugg est malignancy in either breast. There has been no suspicious interval change. IMPRESSION: 1. No mammographic evidence of malignancy. 2. Recommend routine screening mammography in one year. BI-RADS Category 1: Negative Reviewed, dictated and finalized at location A.
== END 2022-09-13 07:44 | disposition home or self-care (01) ==
LOC: ANHIMG 07:45
PROVIDERS: PCP Family Medicine; Visit Provider Nurse Practitioner
DX: Z12.31 Encounter for screening mammogram for malignant neoplasm of breast (principal)
CPT/HCPCS: 77063; 77067

== ENCOUNTER 2023-11-12 14:15 | Outpatient (CLI) | payer BC, SELFPAY ==
--- NOTE | ~2023-11-12 | MM_ITS ---
EXAMINATION: MM screening wang BI w jason HISTORY: Screening TECHNIQUE: Craniocaudal and mediolateral oblique 3-D tomosynthesis images were obtained and synthetic 2-D images were generated. CAD analysis was submitted and interpreted. COMPARISON: Comparison to multiple prior studies sequentially, with oldest reviewed study dated 03/14. BREAST PARENCHYMAL COMPOSITION: There are scattered areas of fibroglandular density. FINDINGS: There is no evidence of suspicious mass, calcification, or architectural distortion to sugg est malignancy in either breast. There has been no suspicious interval change. IMPRESSION: 1. No mammographic evidence of malignancy. 2. Recommend routine screening mammography in one year. BI-RADS Category 1: Negative Reviewed, dictated and finalized at location B.
== END 2023-11-12 14:16 | disposition home or self-care (01) ==
LOC: ANHIMG 14:19
PROVIDERS: PCP Family Medicine; Visit Provider Nurse Practitioner Family
DX: Z12.31 Encounter for screening mammogram for malignant neoplasm of breast (principal)
CPT/HCPCS: 77063; 77067

== ENCOUNTER 2024-08-03 15:06 | Outpatient (CLI) | payer BC, SELFPAY ==
--- NOTE | ~2024-08-03 | MR_ITS ---
MRA HEAD History: Migraine Technique: 3D time of flight MRA of the head is performed. Findings: The right and left distal vertebral arteries and the basilar and posterior cerebral arterie s are patent. Basilar artery is diffusely relatively hypoplastic, with posterior cerebral arteries pr edominantly fed via posterior communicating arteries. Right and left distal internal carotid arteries and anterior and middle cerebral arteries are normal. There is no aneurysm, stenosis, or occlusion. Impression: No occlusion, stenosis, or aneurysm. Relatively hypoplastic basilar artery, with posterior cerebral arteries predominantly fed via posteri or communicating arteries. Reviewed, dictated and finalized at location . Impression: No occlusion, stenosis, or aneurysm. Relatively hypoplastic basilar artery, with posterior cerebral arteries predomi nantly fed via posterior communicating arteries.
--- NOTE | ~2024-08-03 | MR_ITS ---
EXAMINATION: MR sinus wo con DATE: 08/03/2024 15:44 INDICATION: Chronic sinusitis TECHNIQUE: Magnetic resonance imaging (MRI) of the paranasal sinuses was performed without intravenou s contrast. Sequences included axial T1-weighted FSE, axial T2-weighted FS FSE, axial T1-weighted FS FSE, coronal T2-weighted FS FSE and coronal T1-weighted FSE. COMPARISON: None. FINDINGS: Minimal mucoperiosteal thickening in the bilateral ethmoid and frontal sinuses. The left ostiomeatal unit is patent. The right ostiomeatal unit is incompletely visualized, partially located between the imaging planes. Minimal rightward bowing of the nasal septum. There is radha bullosa of the left mid dle turbinate. Orbits are normal. No fluid in the mastoid air cells are middle ear cavities. Visualiz ed portion of the brain is unremarkable. IMPRESSION: 1. Minimal mucoperiosteal thickening the bilateral ethmoid and frontal sinuses. Reviewed, dictated and finalized at location A.
== END 2024-08-03 15:07 | disposition home or self-care (01) ==
LOC: MICIMG 15:08
PROVIDERS: PCP Nurse Practitioner Family; Visit Provider Nurse Practitioner Family
DX: Q28.1 Other malformations of precerebral vessels (principal); J32.9 Chronic sinusitis, unspecified; G43.909 Migraine, unspecified, not intractable, without status migrainosus
CPT/HCPCS: 70540; 70544